=== PATIENT | male | born 2000 | race Caucasian/White ===

== ENCOUNTER 2018-04-06 21:10 | Emergency (ER) | payer BC, OTHER ==
[2018-04-06] MEDS ORDERED: Ibuprofen TAB* 600 MG PO ONE (21:50)
--- NOTE | 2018-04-06 22:02 | UC ---
Throat Pain/Nasal Malvin HPI - HPI Summary HPI Summary: [employer] "complaints of sore throat for past 2 days, nasal congestion and headache." sx started suddenly yesterday. denies swollen glands anteriorly or posteriorly. no rash. never had mono. no stiff neck. no photophobia. mild cough. no known sick contacts. -denies all chest pains, palpitations and SOB - History of Current Complaint Stated Complaint: FEVER/ST Pain Intensity: 5 - Allergies/Home Medications Allergies/Adverse Reactions: Allergies Allergy/AdvReac Type Severity Reaction Status Date / Time amoxicillin Allergy Rash Verified 04/06/18 21:53 PMH/Surg Hx/FS Hx/Imm Hx Previously Healthy: Yes - Surgical History Surgical History: None Surgery Procedure, Year, and Place: denies - Family History Known Family History: Positive: Hypertension - Social History Alcohol Use: None Substance Use Type: None Smoking Status (MU): Never Smoked Tobacco - Immunization History Vaccination Up to Date: Yes Review of Systems Constitutional: Negative Skin: Negative Eyes: Negative ENT: Negative Respiratory: Negative Cardiovascular: Negative Gastrointestinal: Negative Genitourinary: Negative Motor: Negative Neurovascular: Negative Musculoskeletal: Negative Neurological: Negative Psychological: Negative Is Patient Immunocompromised?: No All Other Systems Reviewed And Are Negative: Yes Physical Exam Triage Information Reviewed: Yes Appearance: Well-Nourished, Ill-Appearing - mild, very pleasant, smiling and polite. sniffling and mild dry cough. Vital Signs: Initial Vital Signs Temp 102.4 F 04/06/18 21:42 Pulse 137 04/06/18 21:42 Resp 17 04/06/18 21:42 BP 127/45 04/06/18 21:42 Pulse Ox 97 04/06/18 21:42 Vital Signs Reviewed: Yes Eye Exam: Normal ENT: Positive: Pharyngeal erythema - no abscess, no exudate., TMs normal, Uvula midline. Negative: Tonsillar swelling, Tonsillar exudate, Muffled voice, Hoarse voice, Sinus tenderness Dental Exam: Normal Neck exam: Normal Neck: Positive: Supple, Nontender, No Lymphadenopathy - anteriorly or posteriorly. Negative: Nuchal Rigidity, Tenderness @ Respiratory: Positive: No respiratory distress, No accessory muscle use, Decreased breath sounds. Negative: Crackles, Rhonchi, Stridor, Wheezing Cardiovascular Exam: Normal Cardiovascular: Positive: RRR, No Murmur Abdomen Description: Positive: Nontender, Soft Bowel Sounds: Positive: Present Musculoskeletal Exam: Normal Neurological Exam: Normal Psychological Exam: Normal Skin Exam: Normal Throat Pain/Nasal Course/Dx - Course Course Of Treatment: -rapid strep neg. -rapid flu neg. -UA SG 1.020. + ketones & bili, no nitrites or leuk. -CXR tonight negative upon my evaluation. official read will be in AM. -check cbc & mono w/ reflex ebv if neg. -EKG: sinus tachy at 137. -rpt HR after drinking ~ 20 oz water down to 127. added juice and decreased to 120 apical check by [email or web address] at 23:30. -instructed to take ibuprofen 800mgs every 8 hrs until he feels better for fever control and sx. -go to ER if sx worsen, perisst or HR > 110 tomorrow. - Differential Dx/Diagnosis Differential Diagnosis/HQI/PQRI: Influenza, Mononucleosis, Peritonsillar Abscess , Pharyngitis, Sinusitis, URI Provider Diagnoses: Fever, tachycardia, pharyngitis Discharge - Sign-Out/Discharge Documenting (check all that apply): Patient Departure All imaging exams completed and their final reports reviewed: No - Discharge Plan Condition: Improved Disposition: HOME Patient Education Materials: Dehydration (ED), Pharyngitis (ED) Referrals: Felipe Edwards MD [Primary Care Provider] - 3 Days Additional Instructions: We tested you for flu and strep which are both negative. I did not see any pneumonia or abnormalities with your heart on you chest xray, although we won't have the official radiology evaluation until tomorrow. The urine shows that you are dehydrated, but no sign of infection. -It is very important that you push hydration as much as possible. You should drink at least 64 ounces of water daily in addition to Gatorade over the next few days to rehydrate herself. -I showed you how to check your pulse. Normal is < 100. If it is greater than 110 tomorrow, you should go to the ER as you will probably need IV fluids. -You can call for your results in 2-3 days for the mono and blood count. -Ibuprofen 800mgs every 8 hrs for fever and pain until symptoms improve. - Billing Disposition and Condition Condition: IMPROVED Disposition: Home
[2018-04-06 22:49] VITALS: BP 108/64
--- NOTE | 2018-04-07 07:58 | RAD ---
INDICATION: Fever and tachycardia, chills and mild cough. COMPARISON: There are no relevant prior studies available for comparison. TECHNIQUE: Dual-energy PA and lateral views of the chest were obtained. FINDINGS: The heart is within normal limits in size. Mediastinal and hilar contours appear within normal limits. The lungs are clear. No pleural effusion is present. IMPRESSION: NO EVIDENCE FOR ACTIVE CARDIOPULMONARY DISEASE. R0
[2018-04-07 14:16] LABS: ABS Basophils 0 10^3/ul (0-0.2); ABS Eosinophils 0 10^3/ul (0-0.6); ABS Lymphocytes 0.5 10^3/ul (1.0-4.8); ABS Neutrophils 8.6 10^3/ul (1.5-7.7); ABS Nucleated RBC 0 10^3/ul; Eosinophil % 0.1 % (0-6); Hematocrit 45 % (42-52); Hemoglobin 15.6 g/dl (14.0-18.0); Lymphocyte % 5.4 % (25-47); Mean Corpuscular HGB Conc 35 g/dl (31-36); Mean Corpuscular Hemoglobin 30 pg (27-31); Mean Corpuscular Volume 87 fL (80-94); Mean Platelet Volume 9.2 um3 (7.4-10.4); Nucleated Red Blood Cells % 0.3; Platelet Count 165 10^3/ul (150-450); Red Blood Count 5.14 10^6/ul (4.00-5.40); Red Cell Distribution Width 13 % (10.5-15); White Blood Count 10.2 10^3/ul (3.5-10.8)
--- NOTE | 2018-04-09 10:16 | UC ---
Discharge - Sign-Out/Discharge Documenting (check all that apply): Post-Discharge Follow Up All imaging exams completed and their final reports reviewed: Yes - Discharge Plan Condition: Improved Disposition: HOME Patient Education Materials: Dehydration (ED), Pharyngitis (ED) Referrals: Felipe Edwards MD [Primary Care Provider] - 3 Days Additional Instructions: We tested you for flu and strep which are both negative. I did not see any pneumonia or abnormalities with your heart on you chest xray, although we won't have the official radiology evaluation until tomorrow. The urine shows that you are dehydrated, but no sign of infection. -It is very important that you push hydration as much as possible. You should drink at least 64 ounces of water daily in addition to Gatorade over the next few days to rehydrate herself. -I showed you how to check your pulse. Normal is < 100. If it is greater than 110 tomorrow, you should go to the ER as you will probably need IV fluids. -You can call for your results in 2-3 days for the mono and blood count. -Ibuprofen 800mgs every 8 hrs for fever and pain until symptoms improve. - Billing Disposition and Condition Condition: IMPROVED Disposition: Home
== END 2018-04-06 23:47 | disposition home or self-care (01) ==
LOC: UCCORT 21:10
DX: R50.9 Fever, unspecified (principal); R00.0 Tachycardia, unspecified; J02.9 Acute pharyngitis, unspecified; Z88.0 Allergy status to penicillin
CPT/HCPCS: 36415; 71046; 81003; 85025; 86308; 86664; 86665; 87651; 93005; 99212; A9270-GY; G0463